=== PATIENT | male | born 1990 | race Caucasian/White ===

== ENCOUNTER 2018-04-11 19:33 | Emergency (ER) | payer SELFPAY ==
[~2018-04-11] VITALS: Ht 180.3 cm; Wt 70.5 kg
[2018-04-11 19:47] VITALS: Ht 180.3 cm; Wt 70.5 kg
[2018-04-11 20:19] LABS: APPEARANCE CLEAR (CLEAR); BILIRUBIN NEGATIVE (NEGATIVE); COLOR YELLOW (YELLOW); GLUCOSE NEGATIVE (NEGATIVE); KETONE LARGE mg/dL (NEGATIVE); NITRITE NEGATIVE (NEGATIVE); PROTEIN TRACE mg/dL (NEGATIVE); SPECIFIC GRAVITY 1.025 (1.005-1.020); UROBILINOGEN NORMAL (NORMAL)
[2018-04-11 20:21] LABS: RED CELLS - URINE 0-5 /hpf (0-5)
[2018-04-11 20:22] LABS: EPITHELIAL CELLS 0-5 /hpf (0-5)
[2018-04-11 20:23] LABS: BACTERIA FEW /hpf (NONE SEEN); MUCUS >1+ /lpf (NONE SEEN)
[2018-04-11 20:40] LABS: BASOPHILS 0.4 % (0-2); EOSINOPHILS 0.6 % (0-7); HEMATOCRIT 47.4 % (42.0-54.0); HEMOGLOBIN 16.8 g/dL (13.5-17.5); IMMATURE GRANULOCYTES 0.2 % (0-5); LYMPHOCYTES 20.9 % (15-50); MCH 31.6 pg (26.0-34.0); MCHC 35.4 g/dL (31.0-37.0); MCV 89.3 fL (80.0-100.0); MONOCYTES 12.3 % (2-11); NEUTROPHILS 65.6 % (40-80); PLATELET COUNT 209 10x3/uL (130-400); RBC 5.31 10x6/uL (4.20-6.10); RDW 12.1 % (11.5-14.5); WBC 9.3 10x3/uL (4.8-10.8)
[2018-04-11 21:07] LABS: ALBUMIN 4.9 g/dL (3.4-5.0); ALKALINE PHOSPHATASE 65 U/L (46-116); ALT (SGPT) 21 U/L (10-68); BILIRUBIN - TOTAL 1.07 mg/dL (0.2-1.3); CALC OSMOLALITY 276 mosm/kg (275-300); CALCIUM 9.6 mg/dL (8.5-10.1); CARBON DIOXIDE 29.6 mmol/L (21.0-32.0); CHLORIDE - SERUM 99 mmol/L (98-107); CREATININE - SERUM 1.2 mg/dL (0.6-1.3); GLUCOSE 109 mg/dL (74-106); POTASSIUM - SERUM 4.2 mmol/L (3.5-5.1); PROTEIN - SERUM 8.5 g/dL (6.4-8.2); SODIUM 138 mmol/L (136-145); UREA NITROGEN 13 mg/dL (7-18); eGFR NON AFRICAN AMERICAN 76 mL/min (90-120)
[2018-04-11 22:26] VITALS: BP 130/77
[2018-04-14 13:07] LABS: CHLAMYDIA TRACHOMATIS, NAA Negative (Negative)
== END 2018-04-11 22:27 | disposition home or self-care (01) ==
LOC: D.ER 19:33
PROVIDERS: Family Medicine
DX: A64 Unspecified sexually transmitted disease (principal); F17.200 Nicotine dependence, unspecified, uncomplicated